=== PATIENT | female | born 1990 | race Hispanic/Latino ===

== ENCOUNTER 2018-11-20 08:05 | Emergency (ER) | payer SELFPAY ==
[2018-11-20 08:10] VITALS: BMI 21.0
[2018-11-20 08:14] VITALS: BP 127/84; RESP 18
--- NOTE | 2018-11-20 08:31 | ED PDOC ---
Arrival/HPI - General Chief Complaint: Substance Abuse Time Seen by Provider: 11/20/18 08:17 Historian: Patient, Other (Friend) - History of Present Illness Narrative History of Present Illness (Text): 11/20/18 08:34 A 28 year old male, whose past medical history includes Hepatitis C, Lyme's disease, and drug abuse, presents to the emergency department s/p overdose. Patient has a friend/significant other at bedside who found her unconscious. He states she collapsed after injecting heroin and cocaine. He reports "starting CPR" and calling EMS. upon ems arrival pt awake alert. Narcan was not given at the scene. Patient is currently awake and alert drinking coffee. She states that she feels fine and wants to go home without treatment. Patient reports she was sober for 6 months, but relapsed. The patient denies fevers, chills, headache, dizziness, chest pain, shortness of breath, dyspnea on exertion, cough, abdominal pain, nausea, vomiting, diarrhea, back pain, neck pain, urinary/bowel changes, or any other complaint. PMD: None 11/20/18 21:54 Time/Duration: Prior to Arrival Symptom Onset: Sudden Symptom Course: Improving Activities at Onset: Rest, Light Context: Home Past Medical History - Provider Review Nursing Documentation Reviewed: Yes - Infectious Disease Hx of Infectious Diseases: None - Reproductive Currently : Unknown Family/Social History - Physician Review Nursing Documentation Reviewed: Yes Family/Social History: No Known Family HX Allergies/Home Meds Allergies/Adverse Reactions: Allergies No Known Allergies Allergy (Verified 11/20/18 08:10) Review of Systems - Physician Review All systems were reviewed & negative as marked: Yes - Review of Systems Constitutional: absent: Fevers Respiratory: absent: SOB, Cough Cardiovascular: absent: Chest Pain, MARTIN Gastrointestinal: absent: Abdominal Pain, Stool Changes, Diarrhea, Nausea, Vomiting Genitourinary Female: absent: Urine Output Changes Musculoskeletal: absent: Back Pain, Neck Pain Neurological: absent: Headache, Dizziness Physical Exam Vital Signs Reviewed: Yes Vital Signs Temp Pulse Resp BP Pulse Ox 11/20/18 08:14 97.6 F 105 H 18 127/84 97 Temperature: Afebrile Blood Pressure: Normal Pulse: Tachycardic Respiratory Rate: Normal Appearance: Positive for: Well-Appearing, Non-Toxic, Comfortable Pain Distress: None Mental Status: Positive for: Alert and Oriented X 3 - Systems Exam Head: Present: Atraumatic, Normocephalic Pupils: Present: Other (Constricted) Extroacular Muscles: Present: EOMI Conjunctiva: Present: Normal Mouth: Present: Moist Mucous Membranes Neck: Present: Normal Range of Motion Respiratory/Chest: Present: Clear to Auscultation, Good Air Exchange. No: Respiratory Distress, Accessory Muscle Use Cardiovascular: Present: Regular Rate and Rhythm, Normal S1, S2. No: Murmurs Abdomen: No: Tenderness, Distention, Peritoneal Signs Back: Present: Normal Inspection Upper Extremity: Present: Normal Inspection. No: Cyanosis, Edema Lower Extremity: Present: Normal Inspection. No: Edema Neurological: Present: GCS=15, CN II-XII Intact, Speech Normal Skin: Present: Warm, Dry, Normal Color. No: Rashes Psychiatric: Present: Alert, Oriented x 3, Normal Insight, Normal Concentration Medical Decision Making ED Course and Treatment: 11/20/18 08:40 Impression: A 28 year old female is brought into the emergency department via EMS for further evaluation s/p overdose of heroin and cocaine. Plan: -- Reassess and disposition Progress Notes: 11/20/18 08:41: Patient refusing treatment stating she feels fine and wants to go home. I explained to her the risk of leaving without medical treatment. awake alert no si hi. explained risk in detail numerious times. pt clinically sober. friend bedside sober. Leaving Against Medical Advice (AMA): The patient is choosing to leave against medical advice. I have personally explained to the patient that choosing to do so may result in permanent bodily harm, disability, or . I have discussed at great length that without further evaluation and monitoring there may be unforeseen circumstances and/or deterioration causing permanent bodily harm or as a result of their choice. The patient is alert, oriented, and shows the mental capacity to make clear decisions regarding her health care at this time. The patient continues to wish to leave against medical advice. In light of the patients decision to leave against medical advice, follow-up has been arranged and the patient is aware of the importance to following up as instructed. The patient has been advised that they should return to the emergency room immediately if they change their mind at any time, or if their condition begins to change or worsen in any way. 11/20/18 21:54 - Scribe Statement The provider has reviewed the documentation as recorded by the Scribe Simi Roy Provider Scribe Attestation: All medical record entries made by the Scribe were at my direction and personally dictated by me. I have reviewed the chart and agree that the record accurately reflects my personal performance of the history, physical exam, [facility] decision making, and the department course for this patient. I have also personally directed, reviewed, and agree with the discharge instructions and disposition. Disposition/Present on Arrival - Present on Arrival Any Indicators Present on Arrival: No History of DVT/PE: No History of Uncontrolled Diabetes: No Urinary Catheter: No History of Decub. Ulcer: No History Surgical Site Infection Following: None - Disposition Have Diagnosis and Disposition been Completed?: Yes Diagnosis: Overdose, Left against medical advice Disposition: AGAINST MEDICAL ADVICE Disposition Time: 09:00 Condition: UNKNOWN Discharge Instructions (ExitCare): Leaving Against Medical Advice, Polysubstance Abuse, How to Give Naloxone Additional Instructions: return to any er with worsening symptoms or concerns. Prescriptions: RX: Naloxone HCl [Evzio] 0.4 mg IJ ONCE PRN #1 [email or web address] PRN Reason: Opiate Reversal Forms: [employer] ([place]rainian)
[2018-11-20 09:04] VITALS: PULSE 109; TEMP 97.9; O2SAT 94
== END 2018-11-20 08:45 | disposition left against medical advice (07) ==
LOC: ED 08:05
DX: T40.1X1A Poisoning by heroin, accidental (unintentional), initial encounter (principal); T40.5X1A Poisoning by cocaine, accidental (unintentional), initial encounter